=== PATIENT | female | born 1950 | race Two or more races ===

== ENCOUNTER 2022-01-12 07:45 | Inpatient (IN) | payer OTHER ==
[~2022-01-12] VITALS: Ht 165.1 cm; Wt 98.0 kg
[2022-01-13] MEDS ORDERED: TOPROL XL100 M1 PO (11:30)
[2022-01-13] MEDS ORDERED: ATACAND32 MG PO (11:30)
[2022-01-13] MEDS ORDERED: CARDIZEM30 MG PO (11:31)
[2022-01-13] MEDS ORDERED: ACID REDUCER20 M1 PO (11:31)
[2022-01-13] MEDS ORDERED: LIPIT PO (11:31)
[2022-01-13] MEDS ORDERED: LEVOTHYROXINE25 MCG PO (11:31)
[2022-01-13] MEDS ORDERED: ALLEGRA ALLERG180 MG PO (11:32)
[2022-01-13] MEDS ORDERED: CENTRUM PO (11:32)
[2022-01-15] MEDS ORDERED: CLOBETASOL PROP15 GM (09:50)
[2022-01-15] MEDS ORDERED: BACLOFEN10 MG (09:51)
[2022-01-15] MEDS ORDERED: ARTHRITIS PAIN650 M1 (09:51)
[2022-01-15] MEDS ORDERED: LIPITOR20 MG (09:52)
[2022-01-15] MEDS ORDERED: CENTRUM ADULTS1 EACH (09:52)
== END 2022-01-17 12:13 | disposition home or self-care (01) | DRG 735 ==
LOC: O/R 01-15 06:31 → OB/GYN 01-15 06:31 → SURH 01-15 09:00 → OB/GYN 01-15 19:44
PROVIDERS: ADMIT Specialist; ATTEND Specialist
PROC: 0UT9FZZ Resection of Uterus, Via Natural or Artificial Opening With Percutaneous Endoscopic Assistance (ICD-10-PCS; 2022-01-15)
PROC: 0UT7FZZ Resection of Bilateral Fallopian Tubes, Via Natural or Artificial Opening With Percutaneous Endoscopic Assistance (ICD-10-PCS; 2022-01-15)
PROC: 0UT2FZZ Resection of Bilateral Ovaries, Via Natural or Artificial Opening With Percutaneous Endoscopic Assistance (ICD-10-PCS; 2022-01-15)
PROC: 07TC4ZZ Resection of Pelvis Lymphatic, Percutaneous Endoscopic Approach (ICD-10-PCS; 2022-01-15)
PROC: 0DTU4ZZ Resection of Omentum, Percutaneous Endoscopic Approach (ICD-10-PCS; 2022-01-15)
PROC: 3E1M48Z Irrigation of Peritoneal Cavity using Irrigating Substance, Percutaneous Endoscopic Approach (ICD-10-PCS; 2022-01-15)
PROC: 07TD4ZZ Resection of Aortic Lymphatic, Percutaneous Endoscopic Approach (ICD-10-PCS; principal; 2022-01-15 10:45)
DX: C53.0 Malignant neoplasm of endocervix (principal); Z20.822 Contact with and (suspected) exposure to COVID-19